=== PATIENT | male | born 1975 | race Two or more races ===

== ENCOUNTER 2024-10-25 19:32 | Emergency (ER) | payer BC, SELFPAY ==
[2024-10-25 19:34] VITALS: BP 161/115
--- NOTE | 2024-10-25 20:23 | ED.GENMED ---
History of Present Illness
General
Chief Complaint: Head Injury
Source: patient
Exam Limitations: none
Time Seen by Provider: 10/25/24 20:16
History of Present Illness
History of Present Illness:
48 y/o male pt presenting to the ED for a forehead laceration that occurred around 7pm today. Pt states he was struck in the head by garage door handle. Reports associated headache and nausea. Pt denies any LOC, blurry vision, dizziness. Pt not on
thinners. Pt is not up to date on his tetanus.
Past History
Past History
ED Past Medical History: HTN
Review of Systems
Review of Systems
Allergies reviewed?: Yes
Respiratory: Reports no symptoms
Cardiac: Reports no symptoms
ABD/GI: Reports nausea
Skin: Reports other (Forehead laceration)
Neurological: Reports headache
Hematologic/Lymphatic: Reports bleeding
Phy Exam
General Physical Exam
General Presentation: no apparent distress and other (patient uncomfortable due to forehead laceration)
General age: appears stated age
General Habitus: normal
General Mental: alert
ENT Exam
ENT Exam: normocephalic
Eye Exam
Eye Exam: PERRL
Cardiovascular Exam
Cardiovascular Exam: regular rate/rhythm
Neurological Exam
Neurological Exam: alert, oriented x3 and speech normal
Skin Exam
Skin Exam: normal color, warm/dry and laceration
Course
Orders/Labs/Results
Orders:
Orders
10/25/24 20:[address] [CT Head W/o Iv Contrast] Urgent
Comment:
Reason For Exam: head injury
10/25/24 21:02
Tetanus/Diphth/Acelpertussis [Adacel] 0.5 ml IM .ONCE ONE
10/25/24 21:20
Acetaminophen [Tylenol] 1,000 mg PO NOW STA
10/25/24 21:27
Oxycodone/Acetaminophen [Percocet 5/325] 2 tablet PO NOW STA
10/25/24 21:44
Cephalexin Monohydrate [Keflex] 500 mg PO NOW STA
Vital Signs
Initial and Last Documented VS:
Initial Vital Signs
Temp Pulse Resp BP Pulse Ox
98.0 F 75 20 161/115 99
10/25/24 19:34 10/25/24 19:34 10/25/24 19:34 10/25/24 19:34 10/25/24 19:34
Last Documented Vital Signs
Temp Pulse Resp BP Pulse Ox
98.0 F 74 18 142/92 98
10/25/24 19:34 10/25/24 21:26 10/25/24 21:26 10/25/24 21:26 10/25/24 21:26
Procedures
Laceration Closure
Medial Forehead:
Status of Wound: clean
Size of Wound in cm: 4
Description of Wound Edges: ragged
Preparation: cleaned with saline
Anesthesia: 1% Lidocaine with epi
Type of Closure: single layer closure and interrupted sutures
Skin Closure Material: 5-0 prolene
Number of sutures: 13
*Critical Care Note
Total Time (30-74mins, 75-104mins- exclusive of procedures): Not Applicable
ED Attending Note
-
Portions of this chart may have been created with voice recognition software.� Occasional wrong word or��sound alike� substitutions may have occurred due to the inherent limitations of voice recognition software.
Discharge Plan
Departure
Patient Disposition: Home (Routine Discharge)
Date of Disposition: 10/25/24
Time of Disposition: 21:19
Patient with high blood pressure during this ER visit?: Yes
Discharge Problem:
Facial laceration, Fracture of frontal sinus
Instructions: Laceration Repair With Stitches (DC), Facial fractures, BLOOD PRESSURE
Prescriptions:
New
oxycodone-acetaminophen [Percocet] 5-325 mg tablet
1 - 2 tab PO Q6HPRN PRN (Reason: pain) Qty: 10 0RF
cephalexin 500 mg tablet
500 mg PO TID Qty: 15 0RF
Referrals:
Faisal Hartman MD [Active] - Next open appointment
Activity Restrictions/Additional Instructions:
Have the stitches removed by your primary care doctor in approximately 5 to 7 days. Although there is no bleeding in the brain, there is signs of a 1cm depressed comminuted fracture along the anterior margin of the left front sinus. I notified the
neurosurgeon health promotion specialist, who recommended ENT evaluation. I notified Dr. Hartman who could see you in follow-up. Please call their office tomorrow for follow-up.
Interventions
Interventions:
*General Assessment Last Done: 10/25/24 19:34
ED- Neurological Assessment Last Done: 10/25/24 20:45
ED-Skin Assessment Last Done: 10/25/24 20:45
Discharge Date and Time
Print Language: NIUEAN
[2024-10-25 21:26] VITALS: BP 142/92
[2024-10-25] MEDS: PERCOCET 5/325 2 TABLET PO (21:36)
[2024-10-25] MEDS: ADACEL 0.5 ML IM (21:38)
[2024-10-25] MEDS: KEFLEX 500 MG PO (22:23)
== END 2024-10-25 22:44 | disposition home or self-care (01) ==
LOC: EMR 19:32
PROVIDERS: EMERGENCY PHYSICIAN Emergency Medicine
DX: S02.19XA Other fracture of base of skull, initial encounter for closed fracture (principal); S01.81XA Laceration without foreign body of other part of head, initial encounter; W22.8XXA Striking against or struck by other objects, initial encounter; I10 Essential (primary) hypertension
CPT/HCPCS: 12013; 90471; 99284; 70450; 90715